=== PATIENT | male | born 1990 | race African-American/Black ===

== ENCOUNTER 2021-11-09 01:50 | Emergency (ER) | payer SELFPAY ==
[~2021-11-09] VITALS: Ht 185.4 cm; Wt 81.6 kg
[2021-11-09 01:58] VITALS: BP 139/94
== END 2021-11-09 02:02 | disposition home or self-care (01) ==
LOC: ER 01:59
DX: Z53.21 Procedure and treatment not carried out due to patient leaving prior to being seen by health care provider (principal)